=== PATIENT | male | born 1970 | race Caucasian/White ===

== ENCOUNTER 2016-08-31 10:04 | Emergency (ER) | payer SELFPAY ==
[~2016-08-31] VITALS: Ht 182.9 cm; Wt 89.0 kg
[2016-08-31 10:06] VITALS: BP 160/96; PULSE 92; RESP 20; TEMP 97.8; O2SAT 96
--- NOTE | 2016-08-31 10:37 | PD ---
HPI Chief Complaint: Skin Problem Time Seen by Provider: 10:37 Travel History International Travel<30 days: No Contact w/Intl Traveler<30days: No Traveled to known affect area: No History of Present Illness HPI 46-year-old male presents emergency Department with complaint of redness, swelling, pain to the right calf since Friday. He says he was swimming in the ocean and felt something sting or bite him and had onset of symptoms later on that day. Denies paresthesias, loss of sensation, decreased range of motion , decreased strength to the affected extremity. Denies fever, vomiting. Denies history of DVT. Reports having up-to-date on his tetanus vaccination. Has not taken any medications or tried any treatments to alleviate his symptoms. Pain is aggravated with palpation and walking. No known relieving factors. Allergies to amoxicillin. Has no other medical complaints. No other modifying factors or associated signs and symptoms. PFSH Past Medical History Medical History: Denies Significant Hx Diminished Hearing: No Immunizations Current: Yes Tetanus Vaccination: < 5 Years Influenza Vaccination: No Past Surgical History Appendectomy: Yes Social History Alcohol Use: Yes (OCC ) Tobacco Use: Yes Substance Use: Yes (MARIJUANA ) Allergies-Medications (Allergen,Severity, Reaction): Coded Allergies: Amoxicillin (Verified Allergy, Unknown, RASHES , 08/31/16) Reported Meds & Prescriptions Reported Meds & Active Scripts Active Ibuprofen 800 Mg Tab 800 Mg PO Q6HR PRN Doxycycline Hyclate 100 Mg Cap 100 Mg PO BID 10 Days Review of Systems Except as stated in HPI: all other systems reviewed are Neg Physical Exam Narrative GENERAL: Well-nourished, well-developed male patient, in no acute distress SKIN: Warm and dry. Right calf with large area of erythema, edema and warmth to touch; tenderness to palpation. No lymphangitis noted. HEAD: Atraumatic. Normocephalic. EYES: Pupils equal and round. No scleral icterus. No injection or drainage. ENT: Mucosa pink and moist. Airway patent. NECK: Trachea midline. CARDIOVASCULAR: Regular rate. RESPIRATORY: No accessory muscle use. GASTROINTESTINAL: Rounded. MUSCULOSKELETAL: Right lower extremity supple and non-tense with 2+ pedal pulse and sensory intact. Reproducible tenderness on palpation to the posterior upper calf. No obvious deformities. No clubbing. No cyanosis. No edema.NEUROLOGICAL: Awake and alert. Oriented 3. No obvious cranial nerve deficits. Motor grossly within normal limits. Normal speech. PSYCHIATRIC: Appropriate mood and affect; insight and judgment normal. Data Data Last Documented VS Vital Signs Date Time Temp Pulse Resp B/P Pulse Ox O2 Delivery O2 Flow Rate FiO2 08/31/16 10:06 97.8 92 20 160/96 96 Room Air Orders Ketorolac Inj (Toradol Inj) (08/31/16 10:45) Us Leg Venous Doppler (08/31/16 ) MDM Medical Decision Making Medical Screen Exam Complete: Yes Emergency Medical Condition: Yes Medical Record Reviewed: Yes Differential Diagnosis Cellulitis, marine animal bite or sting, DVT Narrative Course 46-year-old male with suspected cellulitis of the right calf. The right lower leg is edematous and has a large area of erythema with warmth to touch. I will do a venous Doppler ultrasound of the right leg to rule out DVT. Toradol administered in the ER. Right leg venous Doppler ultrasound ordered. 1215: Right leg venous Doppler ultrasound negative for DVT. I will prescribe doxycycline secondary to patient reporting marine animal bite or sting. Area of erythema marked with a surgical marker. Doxycycline and ibuprofen prescribed for home. Instructed patient to follow up with primary care provider. Patient verbalizes understanding and agreement with treatment plan. Patient is medically cleared and stable for discharge. Discussed reasons to return to the emergency department. Patient agrees with treatment plan. The patients vital signs are stable and the patient is stable for outpatient follow- up and treatment. Patient discharged home, stable and in no acute distress. Diagnosis Primary Impression: Cellulitis of lower leg Referrals: Primary Care Physician Patient Instructions: Cellulitis (ED), General Instructions Additional Instructions: Complete full course of antibiotics Warm compresses to the affected area Keep area clean and dry Ibuprofen or Tylenol as directed and as needed for pain and inflammation Follow-up with primary care provider Return to emergency department immediately with worsening of symptoms Med/Other Pt SpecificInfo: Prescription(s) given Scripts Ibuprofen 800 Mg [id number] Mg PO Q6HR PRN (PAIN) #30 TAB Ref 0 Prov:Jade Arce 08/31/16 Doxycycline Hyclate 100 Mg [id number] Mg PO BID 10 Days Ref 0 Prov:Jade Arce 08/31/16 Disposition: 01 DISCHARGE HOME Condition: Stable Jade Arce Aug 31, 2016 10:37
[2016-08-31] MEDS ORDERED: KETOROLAC TROMETHAMINE 60 MG/2 ML (IM) VIAL IM ONE (10:45)
--- NOTE | 2016-08-31 11:55 | RADRPT ---
EXAM DATE/TIME: 08/31/2016 11:29 [facility] COMPARISON: No previous studies available for comparison. INDICATIONS : Right leg swelling and redness. MEDICAL HISTORY : Right leg swelling. SURGICAL HISTORY : Appendectomy. ENCOUNTER: Initial ACUITY: 3 days PAIN SCORE: 5/10 LOCATION: Right leg. TECHNIQUE: Venous ultrasound of the leg was performed from the inguinal ligament to the proximal calf. Real-dorothy e, color Doppler and spectral tracing, compression and augmentation techniques were used. FINDINGS: There is normal compressibility of the deep venous system from the inguinal region to the proximal ca lf. No echogenic clot is seen in the lumen of the common femoral, femoral, popliteal, and posterior tibial veins. There is a normal response of the venous system to proximal and distal augmentation an d respiration. CONCLUSION: 1. No evidence for DVT. Edgar Pham MD on August 31, 2016 at 11:52 Board Certified Radiologist. This report was verified electronically.
[2016-08-31] MEDS ORDERED: IBUP800T23 PO (12:02)
[2016-08-31] MEDS ORDERED: DOXY100C PO (12:02)
== END 2016-08-31 12:20 | disposition home or self-care (01) ==
LOC: NEPK 10:04
DX: L03.115 Cellulitis of right lower limb (principal); Z72.0 Tobacco use; W56.81XA Bitten by other nonvenomous marine animals, initial encounter; Y93.11 Activity, swimming; Y92.832 Beach as the place of occurrence of the external cause
CPT/HCPCS: 93971; 96372; 99284; J1885